=== PATIENT | female | born 1945 | race Caucasian/White ===

== ENCOUNTER 2017-08-23 17:45 | Emergency (ER) | payer MEDICARE, OTHER ==
[2017-08-23] MEDS ORDERED: Labetalol 20 MG/4 ML Syringe IVPUSH ONE (18:42)
--- NOTE | 2017-08-23 18:44 | EDM.PDOC ---
<Pete Reyes - Last Filed: 08/23/17 20:19> ED HPI GENERAL MEDICAL PROBLEM - General Chief Complaint: Cardiovascular Problem Stated Complaint: HIGH BP Time Seen by Provider: 08/23/17 17:58 - History of Present Illness INITIAL COMMENTS - FREE TEXT/NARRATIVE: Says she was doing light housework when the upper chest pain began. No SOB, nausea or diaphoresis. [place] warm. Had taken an Imitrex an hour before the sx's began, lasted 15 minutes. Has used Imitrex many times in the past and never had this reaction. Has not missed any of her BP meds. BP usually runs about upper 140's. Has no hx of CAD. Takes clonidine only once a day at night, usually sees her doctor for BP checks in the morning. - Related Data Allergies Allergy/AdvReac Type Severity Reaction Status Date / Time melatonin Allergy Cannot Verified 08/23/17 17:57 Remember Home Meds: Home Meds Cholecalciferol (Vitamin D3) [Vitamin D3] 1 cap PO DAILY 04/12/16 [History] Citalopram [Citalopram HBr] 20 mg PO DAILY 04/12/16 [History] Fenofibrate 160 mg PO DAILY 04/12/16 [History] Levothyroxine [Synthroid] 100 mcg PO DAILY 04/12/16 [History] Losartan [Cozaar] 150 mg PO DAILY 04/12/16 [History] Metoprolol Succinate [Toprol XL] 50 mg PO DAILY 04/12/16 [History] Omeprazole 20 mg PO BID 04/12/16 [History] Oxybutynin Chloride [Ditropan Xl] 10 mg PO DAILY 04/12/16 [History] SUMAtriptan [Imitrex] 50 mg PO ASDIRECTED PRN 04/12/16 [History] cloNIDine [Catapres] 0.1 mg PO DAILY 04/12/16 [History] metFORMIN [Glucophage] 250 mg PO BID 04/12/16 [History] Course - Vital Signs Text/Narrative:: Remained asymptomatic after tx with labetolol and clonidine here in the ER. Will increase her clonidine to every 12 hrs for around the clock coverage. Last Recorded V/S: Last Vital Signs Temp 37.2 C 08/23/17 17:58 Pulse 64 08/23/17 17:58 Resp 22 H 08/23/17 17:58 BP 155/62 H 08/23/17 19:28 Pulse Ox 99 08/23/17 17:58 - Orders/Labs/Meds Orders: Active Orders 24 hr Category Date Time Status EKG Documentation Completion [RC] ASDIRECTED Care 08/23/17 18:43 Active EKG 12 Lead [EK] Routine Ther 08/23/17 18:42 Ordered Labs: Laboratory Tests 08/23/17 08/23/17 08/23/17 Range/Units 19:10 19:10 19:10 Sodium 134 L (135-145) mmol/L Potassium 3.6 (3.5-5.3) mmol/L Chloride 99 L (100-110) mmol/L Carbon Dioxide 27 (23-29) mmol/L BUN 18 (8-23) mg/dL Creatinine 0.9 (0.6-1.3) mg/dL Est Cr Clr Drug Dosing 48.11 mL/min Estimated GFR (MDRD) > 60 (>60) BUN/Creatinine Ratio 20.0 (9-20) Glucose 154 H (80-116) mg/dL Calcium 9.7 (8.6-10.2) mg/dL Troponin I < 0.01 L (0.02-0.06) NG/ML TSH, Ultra Sensitive 2.15 (0.4-5.5) nlU/mL Meds: Medications Discontinued Medications Generic Name Dose Route Start Last Admin Trade Name Freq PRN Reason Stop Dose Admin Clonidine HCl 0.1 mg 08/23/17 19:22 08/23/17 19:28 Catapres PO 08/23/17 19:23 0.1 mg ONETIME ONE Administration Labetalol HCl 10 mg 08/23/17 18:42 08/23/17 18:51 Normodyne IVPUSH 08/23/17 18:43 10 mg ONETIME ONE Administration Protocol Departure - Departure Time of Disposition: 20:25 Disposition: Home, Self-Care 01 Condition: Fair Clinical Impression: Hypertensive urgency Referrals: Edie Gilmore PA [Primary Care Provider] - Forms: ED Department Discharge - My Orders Last 24 Hours: My Active Orders 08/23/17 18:42 EKG 12 Lead [EK] Routine 08/23/17 18:43 EKG Documentation Completion [RC] ASDIRECTED - Assessment/Plan Last 24 Hours: My Active Orders 08/23/17 18:42 EKG 12 Lead [EK] Routine 08/23/17 18:43 EKG Documentation Completion [RC] ASDIRECTED <Christiano Schuster M - Last Filed: 08/24/17 08:46> ED HPI GENERAL MEDICAL PROBLEM - General Source of Information: Reports: Patient, Family History Limitations: Reports: No Limitations - History of Present Illness INITIAL COMMENTS - FREE TEXT/NARRATIVE: 72 y.o.w.f with H/O HTN came to the ED because of HTN. Pt had CP in am. BP was 210 in am. BP did not go down which prompted the pt to come to the ed. No CP, No H/A no N/V or any other acute medical issues. 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: Musculoskeletal History: Reports: Arthritis, Osteoarthritis Neurological History: Reports: Migraines Psychiatric History: Reports: Anxiety Endocrine/Metabolic History: Reports: Diabetes, Type II, Hypothyroidism - Past Surgical History GI Surgical History: Reports: Appendectomy Female Surgical History: Reports: Hysterectomy, Other (See Below) Other Female Surgeries/Procedures: MENOPAUSAL SYNDROME Musculoskeletal Surgical History: Reports: Arthroscopic Knee Social & Family History - Tobacco Use Smoking Status *Q: Never Smoker Second Hand Smoke Exposure: No - Caffeine Use Caffeine Use: Reports: Soda - Recreational Drug Use Recreational Drug Use: No ED ROS GENERAL - Review of Systems Review Of Systems: See Below Constitutional: Reports: No Symptoms HEENT: Reports: No Symptoms Respiratory: Reports: No Symptoms Cardiovascular: Reports: Chest Pain (in am) Endocrine: Reports: No Symptoms GI/Abdominal: Reports: No Symptoms : Reports: No Symptoms Musculoskeletal: Reports: No Symptoms Skin: Reports: No Symptoms Neurological: Reports: No Symptoms Psychiatric: Reports: No Symptoms Hematologic/Lymphatic: Reports: No Symptoms Immunologic: Reports: No Symptoms ED EXAM, GENERAL - Physical Exam Exam: See Below Exam Limited By: No Limitations General Appearance: Alert, WD/WN, No Apparent Distress Eye Exam: Bilateral Eye: Normal Inspection Ears: Normal External Exam Ear Exam: Bilateral Ear: Auricle Normal Nose: Normal Inspection Throat/Mouth: Normal Inspection, Normal Lips Head: Atraumatic, Normocephalic Neck: Normal Inspection, Supple, Non-Tender Respiratory/Chest: No Respiratory Distress, Lungs Clear, Normal Breath Sounds Cardiovascular: Normal Peripheral Pulses, Regular Rate, Rhythm Peripheral Pulses: 1+: Radial (R) GI/Abdominal: Normal Bowel Sounds, Soft, Non-Tender, No Organomegaly (Female) Exam: Deferred Rectal (Female) Exam: Deferred Back Exam: Normal Inspection, Full Range of Motion Extremities: Normal Inspection, Normal Range of Motion Neurological: Alert, Oriented, CN II-XII Intact, Normal Cognition Psychiatric: Normal Affect, Normal Mood Skin Exam: Warm, Dry, Intact, Normal Color, No Rash Lymphatic: No Adenopathy EKG INTERPRETATION EKG Date: 08/23/17 Time: 18:45 Rhythm: NSR Rate (Beats/Min): 59 Ronda: Normal P-Wave: Present QRS: Normal ST-T: Normal QT: Normal Comparison: NA - No Prior EKG Course - Vital Signs Text/Narrative:: 72 y.o.w.f with H/O HTN came to the ED because of HTN. Pt had CP in am. BP was 210 in am. BP did not go down which prompted the pt to come to the ed. No CP, No H/A no N/V or any other acute medical issues. SBP on arrival was 189 HR was nl PE: WNWD WF NAD with elevated BP Impression: Hypertensive urgency Tx: Labetolol Signed pt out to Dr. Jesus at 7 pm due to shift changes - Orders/Labs/Meds Labs: Laboratory Tests 08/23/17 08/23/17 08/23/17 Range/Units 19:10 19:10 19:10 Sodium 134 L (135-145) mmol/L Potassium 3.6 (3.5-5.3) mmol/L Chloride 99 L (100-110) mmol/L Carbon Dioxide 27 (23-29) mmol/L BUN 18 (8-23) mg/dL Creatinine 0.9 (0.6-1.3) mg/dL Est Cr Clr Drug Dosing 48.11 mL/min Estimated GFR (MDRD) > 60 (>60) BUN/Creatinine Ratio 20.0 (9-20) Glucose 154 H (80-116) mg/dL Calcium 9.7 (8.6-10.2) mg/dL Troponin I < 0.01 L (0.02-0.06) NG/ML TSH, Ultra Sensitive 2.15 (0.4-5.5) nlU/mL
[2017-08-23] MEDS ORDERED: cloNIDine 0.1 MG Tab PO ONE (19:22)
[2017-08-24 19:54] VITALS: BP 164/66
== END 2017-08-23 20:55 | disposition home or self-care (01) ==
LOC: FB.ED 17:45
DX: I16.0 Hypertensive urgency (principal); I10 Essential (primary) hypertension; E11.9 Type 2 diabetes mellitus without complications; E78.00 Pure hypercholesterolemia, unspecified; E03.9 Hypothyroidism, unspecified; Z79.84 Long term (current) use of oral hypoglycemic drugs; Z79.899 Other long term (current) drug therapy; Z88.8 Allergy status to other drugs, medicaments and biological substances
CPT/HCPCS: 36415; 80048; 84443; 84484; 93005; 96374; 99283; A9270; 93010; 99284

== ENCOUNTER 2017-12-22 17:46 | Emergency (ER) | payer MEDICARE, OTHER ==
[2017-12-22] MEDS ORDERED: Sodium Chloride 0.9% 1,000 ML IV ONE (17:59)
[2017-12-22] MEDS ORDERED: Ketorolac 30 MG/ML SDV IVPUSH ONE (18:00)
[2017-12-22] MEDS ORDERED: Albuterol/Ipratropium 3.0-0.5 MG/3 ML Neb Soln NEB ONE (18:02)
--- NOTE | 2017-12-22 20:00 | EDM.PDOC ---
ED HPI GENERAL MEDICAL PROBLEM - General Chief Complaint: Respiratory Problem Stated Complaint: SOB, COUGHING Time Seen by Provider: 12/22/17 17:50 Source of Information: Reports: Patient, Family History Limitations: Reports: No Limitations - History of Present Illness INITIAL COMMENTS - FREE TEXT/NARRATIVE: 72 y.o.w.f came to the ed with nonspecific medical issues. She had a cough, non productive, ant Chest wall pain with a cough, pneumonia last August, gen body ache, poor po intake, nasal congestion. No N/V/D. Possible sick contact. No Dizziness or lightheadedness, no trauma. Pt was ambulating well to the ED. BP 161/76 pulse 81 Temp 38.8 O2 sat 97% Onset Date: 12/19/17 Onset Time: 08:00 Duration: Day(s):, Getting Worse, Intermittent Location: Reports: Chest Quality: Reports: Same as Previous Episode, Other (dry cough, hurts to breath.) Severity: Moderate Improves with: Reports: Rest Worsens with: Reports: Movement Context: Reports: Sick Contact Associated Symptoms: Reports: Chest Pain, Cough, Weakness head and chest Pain Score (Numeric/FACES): 6 - Related Data Allergies Allergy/AdvReac Type Severity Reaction Status Date / Time No Known Allergies Allergy Verified 12/22/17 18:07 Home Meds: Home Meds Cholecalciferol (Vitamin D3) [Vitamin D3] 1 cap PO DAILY 04/12/16 [History] Citalopram [Citalopram HBr] 20 mg PO DAILY 04/12/16 [History] Fenofibrate 160 mg PO DAILY 04/12/16 [History] Levothyroxine [Synthroid] 100 mcg PO DAILY 04/12/16 [History] Losartan [Cozaar] 150 mg PO DAILY 04/12/16 [History] Metoprolol Succinate [Toprol XL] 50 mg PO DAILY 04/12/16 [History] Omeprazole 20 mg PO BID 04/12/16 [History] Oxybutynin Chloride [Ditropan Xl] 10 mg PO DAILY 04/12/16 [History] SUMAtriptan [Imitrex] 50 mg PO ASDIRECTED PRN 04/12/16 [History] cloNIDine [Catapres] 0.1 mg PO DAILY 04/12/16 [History] metFORMIN [Glucophage] 250 mg PO BID 04/12/16 [History] Past Medical History HEENT History: Reports: Sinusitis Cardiovascular History: Reports: High Cholesterol, Hypertension Gastrointestinal History: Reports: GERD 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: Musculoskeletal History: Reports: Arthritis, Osteoarthritis Neurological History: Reports: Migraines Psychiatric History: Reports: Anxiety Endocrine/Metabolic History: Reports: Diabetes, Type II, Hypothyroidism - Past Surgical History GI Surgical History: Reports: Appendectomy Female Surgical History: Reports: Hysterectomy, Other (See Below) Other Female Surgeries/Procedures: MENOPAUSAL SYNDROME Musculoskeletal Surgical History: Reports: Arthroscopic Knee Social & Family History - Family History Family Medical History: Unobtainable - Tobacco Use Smoking Status *Q: Never Smoker Second Hand Smoke Exposure: No - Caffeine Use Caffeine Use: Reports: None - Recreational Drug Use Recreational Drug Use: No ED ROS GENERAL - Review of Systems Review Of Systems: See Below Constitutional: Reports: Weakness, Decreased Appetite HEENT: Reports: No Symptoms Respiratory: Reports: Pleuritic Chest Pain Cardiovascular: Reports: No Symptoms Endocrine: Reports: No Symptoms GI/Abdominal: Reports: No Symptoms : Reports: No Symptoms Musculoskeletal: Reports: No Symptoms Skin: Reports: No Symptoms Neurological: Reports: No Symptoms Psychiatric: Reports: No Symptoms Hematologic/Lymphatic: Reports: No Symptoms Immunologic: Reports: No Symptoms ED EXAM, GENERAL - Physical Exam Exam: See Below Exam Limited By: No Limitations General Appearance: Alert, WD/WN, Mild Distress Eye Exam: Bilateral Eye: Normal Inspection Ears: Normal External Exam Ear Exam: Bilateral Ear: Auricle Normal Nose: Normal Inspection Throat/Mouth: Normal Inspection Head: Atraumatic, Normocephalic Neck: Normal Inspection, Supple, Non-Tender, Full Range of Motion Respiratory/Chest: No Respiratory Distress, Wheezing (minor, disappeared after Tx) Cardiovascular: Normal Peripheral Pulses, Regular Rate, Rhythm, No Edema Peripheral Pulses: 1+: Brachial (R) GI/Abdominal: Normal Bowel Sounds, Tender (tender RUQ of abd. ) (Female) Exam: Deferred Rectal (Female) Exam: Deferred Back Exam: Normal Inspection, Full Range of Motion Extremities: Normal Inspection, Normal Range of Motion, Non-Tender Neurological: Alert, Oriented, CN II-XII Intact, Normal Cognition, Normal Gait Psychiatric: Normal Affect, Normal Mood Skin Exam: Warm, Dry, Intact, Normal Color, No Rash Lymphatic: No Adenopathy Course - Vital Signs Text/Narrative:: 72 y.o.w.f came to the ed with nonspecific medical issues. She had a cough, non productive, ant Chest wall pain with a cough, pneumonia last August, gen body ache, poor po intake, nasal congestion. No N/V/D. Possible sick contact. no headache. No Dizziness or lightheadedness, no trauma. Pt was ambulating well to the ED. BP 161/76 pulse 81 Temp 38.8 O2 sat 97% PE: WNWD W F NAD with an elevated temp, mild wheezes, pleurisy, no sinus tenderness. Labs: CBC WNL elevation of direct bilirubin. Influenza test was neg CXR: NAD Impression: Elevated Direct Bilirubin. Gen. bodyache. Pleurisy, viral syndrome Tx: NS, Toradol, Duoneb Reexam: overall Improved with meds. Plan: D/C with instructions Last Recorded V/S: Last Vital Signs Temp 38.8 C H 12/22/17 17:50 Pulse 75 12/22/17 20:35 Resp 16 12/22/17 20:35 BP 121/59 L 12/22/17 20:35 Pulse Ox 95 12/22/17 20:35 - Orders/Labs/Meds Orders: Active Orders 24 hr Category Date Time Status RT Aerosol Therapy [RC] ASDIRECTED Care 12/22/17 18:03 Active Chest 2V [CR] Stat Exams 12/22/17 17:59 Taken CULTURE BLOOD [BC] Urgent Lab 12/22/17 18:10 Received CULTURE BLOOD [BC] Urgent Lab 12/22/17 18:16 Received Blood Culture x2 Reflex Set [OM.PC] Urgent Oth 12/22/17 18:09 Ordered Labs: Laboratory Tests 12/22/17 12/22/17 12/22/17 Range/Units 18:10 18:10 18:10 WBC 11.0 (4.5-12.0) X10-3/uL RBC 3.73 (3.23-5.20) x10(6)uL Hgb 11.5 (11.5-15.5) g/dL Hct 33.3 (30.0-51.3) % MCV 89.2 (80-96) fL MCH 30.8 (27.7-33.6) pg MCHC 34.6 (32.2-35.4) g/dL RDW 14.1 (11.5-15.5) % Plt Count 177 (125-369) X10(3)uL MPV 8.9 (7.4-10.4) fL Neut % (Auto) 74.8 (46-82) % Lymph % (Auto) 17.3 (13-37) % [place] % (Auto) 6.6 (4-12) % Eos % (Auto) 1 (1.0-5.0) % Baso % (Auto) 1 (0-2) % Neut # (Auto) 8.2 (1.6-8.3) # Lymph # (Auto) 1.9 (0.6-5.0) # [place] # (Auto) 0.7 (0.0-1.3) # Eos # (Auto) 0.1 (0.0-0.8) # Baso # (Auto) 0.1 (0.0-0.2) # Sodium 134 L (135-145) mmol/L Potassium 3.7 (3.5-5.3) mmol/L Chloride 100 (100-110) mmol/L Carbon Dioxide 26 (21-32) mmol/L BUN 15 (7-18) mg/dL Creatinine 1.1 H (0.55-1.02) mg/dL Est Cr Clr Drug Dosing 39.37 mL/min Estimated GFR (MDRD) 49 L (>60) BUN/Creatinine Ratio 13.6 (9-20) Glucose 162 H (80-116) mg/dL Lactic Acid (0.4-2.2) mmol/L Calcium 9.0 (8.6-10.2) mg/dL Total Bilirubin (0.1-1.3) mg/dL Direct Bilirubin (0.10-0.20) mg/dL AST (5-25) IU/L ALT (12-36) U/L Alkaline Phosphatase (56-112) IU/L NT-Pro-B Natriuret Pep 746 H (<=125) pg/mL Total Protein (6.0-8.0) g/dL Albumin (3.2-4.6) g/dL Urine Color (YELLOW) Urine Appearance (CLEAR) Urine pH (5.0-6.5) Ur Specific [place] (1.010-1.025) Urine Protein (NEGATIVE) mg/dL Urine Glucose (UA) (NEGATIVE) mg/dL Urine Ketones (NEGATIVE) mg/dL Urine Occult Blood (NEGATIVE) Urine Nitrite (NEGATIVE) Urine Bilirubin (NEGATIVE) Urine Urobilinogen (NEGATIVE) mg/dL Ur Leukocyte Esterase (NEGATIVE) Urine RBC (0) Urine WBC (0) Ur Squamous Epith Cells (NS,R,O) Urine Bacteria (NS) Hyaline Casts (NS) 12/22/17 12/22/17 12/22/17 Range/Units 18:10 18:10 18:30 WBC (4.5-12.0) X10-3/uL RBC (3.23-5.20) x10(6)uL Hgb (11.5-15.5) g/dL Hct (30.0-51.3) % MCV (80-96) fL MCH (27.7-33.6) pg MCHC (32.2-35.4) g/dL RDW (11.5-15.5) % Plt Count (125-369) X10(3)uL MPV (7.4-10.4) fL Neut % (Auto) (46-82) % Lymph % (Auto) (13-37) % [place] % (Auto) (4-12) % Eos % (Auto) (1.0-5.0) % Baso % (Auto) (0-2) % Neut # (Auto) (1.6-8.3) # Lymph # (Auto) (0.6-5.0) # [place] # (Auto) (0.0-1.3) # Eos # (Auto) (0.0-0.8) # Baso # (Auto) (0.0-0.2) # Sodium (135-145) mmol/L Potassium (3.5-5.3) mmol/L Chloride (100-110) mmol/L Carbon Dioxide (21-32) mmol/L BUN (7-18) mg/dL Creatinine (0.55-1.02) mg/dL Est Cr Clr Drug Dosing mL/min Estimated GFR (MDRD) (>60) BUN/Creatinine Ratio (9-20) Glucose (80-116) mg/dL Lactic Acid 1.3 (0.4-2.2) mmol/L Calcium (8.6-10.2) mg/dL Total Bilirubin 0.8 (0.1-1.3) mg/dL Direct Bilirubin 0.38 H (0.10-0.20) mg/dL AST 46 H (5-25) IU/L ALT 35 (12-36) U/L Alkaline Phosphatase 82 (56-112) IU/L NT-Pro-B Natriuret Pep (<=125) pg/mL Total Protein 8.0 (6.0-8.0) g/dL Albumin 2.4 L (3.2-4.6) g/dL Urine Color Yellow (YELLOW) Urine Appearance Clear (CLEAR) Urine pH 8.0 H (5.0-6.5) Ur Specific [place] 1.010 (1.010-1.025) Urine Protein Negative (NEGATIVE) mg/dL Urine Glucose (UA) Normal (NEGATIVE) mg/dL Urine Ketones Negative (NEGATIVE) mg/dL Urine Occult Blood Negative (NEGATIVE) Urine Nitrite Negative (NEGATIVE) Urine Bilirubin Small H (NEGATIVE) Urine Urobilinogen >=12 H (NEGATIVE) mg/dL Ur Leukocyte Esterase Negative (NEGATIVE) Urine RBC 0-5 (0) Urine WBC 0-5 (0) Ur Squamous Epith Cells Moderate H (NS,R,O) Urine Bacteria Moderate H (NS) Hyaline Casts Few H (NS) Meds: Medications Discontinued Medications Generic Name Dose Route Start Last Admin Trade Name Freq PRN Reason Stop Dose Admin Albuterol/Ipratropium 3 ml 12/22/17 18:02 12/22/17 18:24 Duoneb 3.0-0.5 Mg/3 Ml NEB 12/22/17 18:03 3 ml ONETIME ONE Administration Sodium Chloride 1,000 mls @ 500 mls/hr 12/22/17 17:59 12/22/17 18:59 Normal Saline IV 12/22/17 19:58 500 mls/hr .BOLUS ONE Administration Ketorolac Tromethamine 30 mg 12/22/17 18:00 12/22/17 18:33 Toradol IVPUSH 12/22/17 18:01 30 mg ONETIME ONE Administration Departure - Departure Time of Disposition: 20:24 Disposition: Home, Self-Care 01 Condition: Good Clinical Impression: Weakness generalized, Bilirubin in urine - Discharge Information Referrals: Joanna Abbott DO [Primary Care Provider] - Forms: ED Department Discharge Additional Instructions: Come to [facility] for an ultrasound tomorrow morning at 11:30 AM. Do not eat anything for 6 hours prior to appointment. Please f/u with your PMD, come back if your symptoms get worse acutely - My Orders Last 24 Hours: My Active Orders 12/22/17 17:59 Chest 2V [CR] Stat 12/22/17 18:03 RT Aerosol Therapy [RC] ASDIRECTED 12/22/17 18:09 Blood Culture x2 Reflex Set [OM.PC] Urgent 12/22/17 18:10 CULTURE BLOOD [BC] Urgent 12/22/17 18:16 CULTURE BLOOD [BC] Urgent - Assessment/Plan Last 24 Hours: My Active Orders 12/22/17 17:59 Chest 2V [CR] Stat 12/22/17 18:03 RT Aerosol Therapy [RC] ASDIRECTED 12/22/17 18:09 Blood Culture x2 Reflex Set [OM.PC] Urgent 12/22/17 18:10 CULTURE BLOOD [BC] Urgent 12/22/17 18:16 CULTURE BLOOD [BC] Urgent
[2017-12-22 20:41] VITALS: BP 121/59
--- NOTE | 2017-12-23 11:39 | CR ---
INDICATION: Short of breath. CHEST: PA and lateral views of the chest revealed the heart to be enlarged with LVE. The aorta is tortuous with calcification in the arch. A minimal dextroconcave scoliosis is suggested at the lower thoracic spine. An active infiltrate or effusion was not seen. No definite evidence of CHF is seen. Slightly heavy markings at the left costophrenic angle likely are fibrotic in nature, but make it difficult to entirely exclude minimal patchy bronchopneumonia. Prominent AP diameter is noted. Somewhat linear density at the right lung base medially may represent fibrosis and/or linear atelectasis. IMPRESSION: 1. ASHD with LVE. 2. Mild pulmonary fibrosis, some linear atelectasis - difficult to exclude minimal patchy pneumonia at the left costophrenic angle. 3. Minimal scoliosis. MTDD
== END 2017-12-22 20:35 | disposition home or self-care (01) ==
LOC: FB.ED 17:46
DX: R82.2 Biliuria (principal); R53.1 Weakness; E78.00 Pure hypercholesterolemia, unspecified; I10 Essential (primary) hypertension; E11.9 Type 2 diabetes mellitus without complications; E03.9 Hypothyroidism, unspecified; Z79.899 Other long term (current) drug therapy; Z79.84 Long term (current) use of oral hypoglycemic drugs
CPT/HCPCS: 36415; 71046; 80048; 80076; 81001; 83605; 83880; 85025; 87040; 87804; 87804-59; 94640; 96361; 96374; 99284; 99285; J1885; J7040; J7620

== ENCOUNTER 2021-06-27 06:36 | Day surgery (SDC) | payer MEDICARE, OTHER ==
[2021-06-27] MEDS ORDERED: fentaNYL 100 MCG/2 ML SDV IV ONE (06:37)
[2021-06-27] MEDS ORDERED: Midazolam 1 MG/ML 2 ML SDV IV ONE (06:37)
[2021-06-27] MEDS ORDERED: Sodium Chloride 0.9% 10 ML Syringe FLUSH PRN (06:45)
[2021-06-27] MEDS: Lactated Ringers 1,000 ML IV SCH (07:40)
[2021-06-27] MEDS: acetaZOLAMIDE 500 MG Cap.ER PO ONE (09:37)
[2021-06-27 09:56] VITALS: BP 160/94; PULSE 59
--- NOTE | 2021-06-27 11:48 | OR ---
DATE OF OPERATION: 06/27/2021 SURGEON: Marlene Barragan MD PREOPERATIVE DIAGNOSIS: Visually significant cataract, right eye. POSTOPERATIVE DIAGNOSIS: Visually significant cataract, right eye. PROCEDURES PERFORMED: Phacoemulsification with intraocular lens placement, right eye. ASSISTANTS: None. ANESTHESIA: Local with sedation. COMPLICATIONS: None. BLOOD LOSS: None. IMPLANTS: Pre-loaded DCB00 22.0 diopter lens implanted. CDE: 5.10. DESCRIPTION OF PROCEDURE: After risks and benefits were reviewed with the patient, consent was obtained in the preoperative area, and the operative eye was marked with a surgical pen. In the preoperative area, a pledget was used to dilate the pupil consisting of a mixture of phenylephrine 10%, cyclopentolate 2%, moxifloxacin 0.5%, and bupivacaine 0.75%. The patient was taken to the operating room, where a time-out was performed, and the patient was placed under monitored anesthesia care. Topical tetracaine was used for anesthesia. The operative eye was prepped and draped for ophthalmic surgery, and the microscope was brought into position and focused. A paracentesis incision was made, followed by injection of preservative-free 1% lidocaine into the anterior chamber, followed by injection of Viscoat into the anterior chamber. A microkeratome blade was used to make a corneal limbal incision temporally. A cystotome was used to make the beginning of the capsulorrhexis, which was carried around 360 degrees in a curvilinear fashion using Utrata forceps. A Cha cannula with BSS was used to hydrodissect and hydrodelineate the nucleus. The nucleus was removed in a divide and conquer manner using phacoemulsification. Irrigation and aspiration were used to remove the remaining cortical material. Provisc was used to inflate the capsular bag, and a pre-loaded DCB00 22.0 diopter lens, serial number [id number] was injected into the capsular bag. A Sinskey hook was used to position and center the lens. Next, irrigation and aspiration was used to remove any remaining viscoelastic and cortical material from the anterior chamber. BSS on a cannula was used to inflate the anterior chamber and hydrate the wound. The wound was checked and found to be watertight. 1 mg of Moxifloxacin was injected into the anterior chamber. Drapes were removed and the eye was cleaned. A drop of brimonidine 0.2% and a drop of TobraDex was placed. The eye was shielded, and the patient was taken to the recovery room in stable condition. /[id number]
== END 2021-06-27 09:45 | disposition home or self-care (01) ==
LOC: FB.SDS 06:36
PROVIDERS: ATTEND Ophthalmology
DX: E11.36 Type 2 diabetes mellitus with diabetic cataract (principal); H25.13 Age-related nuclear cataract, bilateral; H35.363 Drusen (degenerative) of macula, bilateral; H02.831 Dermatochalasis of right upper eyelid; H02.834 Dermatochalasis of left upper eyelid; H16.223 Keratoconjunctivitis sicca, not specified as Sjogren's, bilateral; H43.811 Vitreous degeneration, right eye; I10 Essential (primary) hypertension; E78.00 Pure hypercholesterolemia, unspecified; F32.9 Major depressive disorder, single episode, unspecified; G43.909 Migraine, unspecified, not intractable, without status migrainosus; Z90.49 Acquired absence of other specified parts of digestive tract; Z79.899 Other long term (current) drug therapy; Z79.84 Long term (current) use of oral hypoglycemic drugs; Z79.890 Hormone replacement therapy; Z98.890 Other specified postprocedural states
CPT/HCPCS: 00142-QZ; 82947; A9270-GY; J2250; J3010; J7120; V2632

== ENCOUNTER 2021-07-11 06:43 | Day surgery (SDC) | payer MEDICARE, OTHER ==
[2021-07-11] MEDS ORDERED: fentaNYL 100 MCG/2 ML SDV IV ONE (06:44)
[2021-07-11] MEDS ORDERED: Midazolam 1 MG/ML 2 ML SDV IV ONE (06:44)
[2021-07-11] MEDS ORDERED: Lactated Ringers 1,000 ML IV SCH (06:45)
[2021-07-11] MEDS ORDERED: Sodium Chloride 0.9% 10 ML Syringe FLUSH PRN (06:45)
[2021-07-11] MEDS ORDERED: acetaZOLAMIDE 500 MG Cap.ER PO ONE (09:00)
[2021-07-11 09:04] VITALS: BP 149/58; PULSE 60
--- NOTE | 2021-07-14 13:58 | OR ---
DATE OF OPERATION: 07/11/2021 SURGEON: Marlene Barragan MD PREOPERATIVE DIAGNOSIS: Visually significant cataract, left eye. POSTOPERATIVE DIAGNOSIS: Visually significant cataract, left eye. PROCEDURES PERFORMED: Phacoemulsification with intraocular lens placement, left eye. ASSISTANTS: None. ANESTHESIA: Local with sedation. COMPLICATIONS: None. BLOOD LOSS: None. IMPLANTS: A pre-loaded DCB00 22.0 diopter lens implanted. CDE: 3.71. DESCRIPTION OF PROCEDURE: After risks and benefits were reviewed with the patient, consent was obtained in the preoperative area, and the operative eye was marked with a surgical pen. In the preoperative area, a pledget was used to dilate the pupil consisting of a mixture of phenylephrine 10%, cyclopentolate 2%, moxifloxacin 0.5%, and bupivacaine 0.75%. The patient was taken to the operating room, where a time-out was performed, and the patient was placed under monitored anesthesia care. Topical tetracaine was used for anesthesia. The operative eye was prepped and draped for ophthalmic surgery, and the microscope was brought into position and focused. A paracentesis incision was made, followed by injection of preservative-free 1% lidocaine into the anterior chamber, followed by injection of Viscoat into the anterior chamber. A microkeratome blade was used to make a corneal limbal incision temporally. A cystotome was used to make the beginning of the capsulorrhexis, which was carried around 360 degrees in a curvilinear fashion using Utrata forceps. A Cha cannula with BSS was used to hydrodissect and hydrodelineate the nucleus. The nucleus was removed in a divide and conquer manner using phacoemulsification. Irrigation and aspiration were used to remove the remaining cortical material. Provisc was used to inflate the capsular bag, and a pre-loaded DCB00 22.0 diopter lens, serial number [id number] was injected into the capsular bag. A Sinskey hook was used to position and center the lens. Next, irrigation and aspiration was used to remove any remaining viscoelastic and cortical material from the anterior chamber. BSS on a cannula was used to inflate the anterior chamber and hydrate the wound. The wound was checked and found to be watertight. 1 mg of Moxifloxacin was injected into the anterior chamber. Drapes were removed and the eye was cleaned. A drop of brimonidine 0.2% and a drop of TobraDex was placed. The eye was shielded, and the patient was taken to the recovery room in stable condition. /[id number]/OG
== END 2021-07-11 09:48 | disposition home or self-care (01) ==
LOC: FB.SDS 06:43
PROVIDERS: ATTEND Ophthalmology
DX: E11.36 Type 2 diabetes mellitus with diabetic cataract (principal); H25.13 Age-related nuclear cataract, bilateral; H35.363 Drusen (degenerative) of macula, bilateral; H02.831 Dermatochalasis of right upper eyelid; H02.834 Dermatochalasis of left upper eyelid; H16.223 Keratoconjunctivitis sicca, not specified as Sjogren's, bilateral; H43.811 Vitreous degeneration, right eye; I10 Essential (primary) hypertension; Z79.899 Other long term (current) drug therapy; E78.00 Pure hypercholesterolemia, unspecified; E03.9 Hypothyroidism, unspecified; F33.0 Major depressive disorder, recurrent, mild; K21.9 Gastro-esophageal reflux disease without esophagitis; Z86.73 Personal history of transient ischemic attack (TIA), and cerebral infarction without residual deficits; Z91.048 Other nonmedicinal substance allergy status; Z79.890 Hormone replacement therapy; Z79.82 Long term (current) use of aspirin; Z79.84 Long term (current) use of oral hypoglycemic drugs; Z90.49 Acquired absence of other specified parts of digestive tract; Z98.890 Other specified postprocedural states
CPT/HCPCS: 00142; 66984; 82947; A9270; J2250; J3010; J7120; V2632

== ENCOUNTER 2022-02-01 07:40 | Day surgery (SDC) | payer MEDICARE, OTHER ==
[2022-02-01] MEDS ORDERED: Propofol 200 MG/20 ML SDV IV ONE (07:41)
[2022-02-01] MEDS ORDERED: Sodium Chloride 0.9% 10 ML Syringe FLUSH PRN (07:45)
[2022-02-01] MEDS ORDERED: Lactated Ringers 1,000 ML IV SCH (07:45)
[2022-02-01 11:27] VITALS: BP 152/66; PULSE 61
== END 2022-02-01 11:58 | disposition home or self-care (01) ==
LOC: FB.SDS 07:40
PROVIDERS: ATTEND Surgery
DX: Z12.11 Encounter for screening for malignant neoplasm of colon (principal); D12.0 Benign neoplasm of cecum; D12.2 Benign neoplasm of ascending colon; K57.30 Diverticulosis of large intestine without perforation or abscess without bleeding; K42.0 Umbilical hernia with obstruction, without gangrene; F41.9 Anxiety disorder, unspecified; F32.A Depression, unspecified; E11.9 Type 2 diabetes mellitus without complications; I10 Essential (primary) hypertension; K21.9 Gastro-esophageal reflux disease without esophagitis; E03.9 Hypothyroidism, unspecified; E66.9 Obesity, unspecified; Z91.018 Allergy to other foods; Z79.84 Long term (current) use of oral hypoglycemic drugs; Z79.899 Other long term (current) drug therapy; Z79.890 Hormone replacement therapy; Z90.49 Acquired absence of other specified parts of digestive tract; Z98.890 Other specified postprocedural states; Z86.010 Personal history of colon polyps; Z86.73 Personal history of transient ischemic attack (TIA), and cerebral infarction without residual deficits
CPT/HCPCS: 00812-QZ; 88305; J2704; J7120

== ENCOUNTER 2022-03-22 07:31 | Day surgery (SDC) | payer MEDICARE, OTHER ==
[~2022-03-22 07:31] MED LIST: Sodium Chloride 0.9% 10 ML Syringe FLUSH PRN
[2022-03-22] MEDS ORDERED: fentaNYL 100 MCG/2 ML SDV IV ONE (07:32)
[2022-03-22] MEDS ORDERED: Ketorolac 30 MG/ML SDV IVPUSH ONE (07:32)
[2022-03-22] MEDS ORDERED: Propofol 200 MG/20 ML SDV IV ONE (07:32)
[2022-03-22] MEDS ORDERED: Glycopyrrolate 0.2 MG/ML 5 ML MDV IV ONE (07:32)
[2022-03-22] MEDS ORDERED: Ondansetron 4 MG/2 ML SDV IVPUSH ONE (07:32)
[2022-03-22] MEDS ORDERED: Midazolam 1 MG/ML 2 ML SDV IV ONE (07:32)
[2022-03-22] MEDS ORDERED: ceFAZolin 1 GM in Sodium Chloride 0.9% 50 ML IV ONE (08:30)
[2022-03-22] MEDS: Lactated Ringers 1,000 ML IV SCH (08:48)
[2022-03-22] MEDS: ceFAZolin 1 GM Vial IVPUSH ONE (09:18)
[2022-03-22] MEDS: Bupivacaine 0.5% 30 ML SDV INJECT ONE (09:48)
[2022-03-22] MEDS: Lidocaine 1% with EPINEPHrine 1:100,000 20 ML MDV INJECT ONE (09:48)
[2022-03-22 12:12] VITALS: BP 161/74; PULSE 64
== END 2022-03-22 11:35 | disposition home or self-care (01) ==
LOC: FB.SDS 07:31
PROVIDERS: ATTEND Surgery
DX: K42.9 Umbilical hernia without obstruction or gangrene (principal); F41.9 Anxiety disorder, unspecified; E11.9 Type 2 diabetes mellitus without complications; F32.A Depression, unspecified; E78.00 Pure hypercholesterolemia, unspecified; K21.9 Gastro-esophageal reflux disease without esophagitis; E78.5 Hyperlipidemia, unspecified; I10 Essential (primary) hypertension; G43.909 Migraine, unspecified, not intractable, without status migrainosus; E66.9 Obesity, unspecified; E03.9 Hypothyroidism, unspecified; Z01.812 Encounter for preprocedural laboratory examination; Z79.899 Other long term (current) drug therapy; Z86.73 Personal history of transient ischemic attack (TIA), and cerebral infarction without residual deficits; Z90.49 Acquired absence of other specified parts of digestive tract; Z98.890 Other specified postprocedural states; Z20.822 Contact with and (suspected) exposure to COVID-19
CPT/HCPCS: 00752-QZ; 82947; J0690; J1885; J2250; J2405; J2704; J3010; J3490; J7120; U0002

== ENCOUNTER 2023-07-13 17:54 | Emergency (ER) | payer MEDICARE, OTHER ==
[2023-07-13] MEDS ORDERED: Sodium Chloride 0.9% 10 ML Syringe FLUSH PRN (19:17)
[2023-07-13] MEDS ORDERED: Sodium Chloride 0.9% 500 ML IV ONE ×2 (19:17→21:11)
[2023-07-13 19:40] LABS: BASOPHILS ABSOLUTE AUTO 0.1 x10-3/uL (0.0-0.1); BASOPHILS PERCENT AUTO 1.1 % (0.2-1.5); EOSINOPHILS ABSOLUTE AUTO 0.2 x10-3/uL (0.0-0.8); EOSINOPHILS PERCENT AUTO 2.2 % (0.6-8.1); HEMATOCRIT 32.9 % (34.2-48.2); HEMOGLOBIN 11.3 g/dL (11.4-15.5); LYMPHOCYTES ABSOLUTE AUTO 2.6 x10-3/uL (1.0-4.4); MEAN CORPUSCULAR HEMOGLOBIN 30.9 pg (23.9-33.9); MEAN CORPUSCULAR HGB CONC 34.4 g/dL (31.9-34.8); MEAN CORPUSCULAR VOLUME 89.9 fL (76.7-100.5); MEAN PLATELET VOLUME 8.1 fL (7.1-12.4); MONOCYTES ABSOLUTE AUTO 0.6 x10-3/uL (0.3-1.0); MONOCYTES PERCENT AUTO 7.8 % (4.4-15.7); NEUTROPHILS ABSOLUTE AUTO 4.1 x10-3/uL (1.5-6.3); NEUTROPHILS PERCENT AUTO 53.9 % (30.8-76.2); PLATELET COUNT,PLT 273 x10(3)uL (151-488); RED BLOOD CELL COUNT 3.66 x10(6)uL (3.60-5.20); RED CELL DISTRIBUTION WIDTH 12.8 % (12.3-16.5); WHITE BLOOD CELL COUNT,WBC 7.6 x10-3/uL (3.0-10.3)
[2023-07-13 19:44] LABS: BLOOD UREA NITROGEN,BUN 23 mg/dL (7-18); BUN/CREATININE RATIO 19.2 (9-20); CARBON DIOXIDE,CO2 27 mmol/L (21-32); CHLORIDE,CL 98 mmol/L (100-110); CREATININE 1.2 mg/dL (0.55-1.02); ESTIMATED GFR 47 mL/min (>60); GLUCOSE RANDOM 119 mg/dL (80-116); POTASSIUM,K 3.7 mmol/L (3.5-5.3); SODIUM,NA 132 mmol/L (135-145)
[2023-07-13 19:55] LABS: A/G RATIO 0.6; ALANINE AMINOTRANSFERASE,ALT 18 U/L (12-36); ALKALINE PHOSPHATASE 52 IU/L (56-112); ASPARTATE AMNIOTRANSFERASE,AST 26 IU/L (5-25); BILIRUBIN TOTAL 0.4 mg/dL (0.1-1.3); PROTEIN TOTAL,TP 8.3 g/dL (6.0-8.0)
[2023-07-14 02:11] VITALS: BP 145/80; PULSE 72
== END 2023-07-13 20:38 | disposition home or self-care (01) ==
LOC: FB.ED 17:54
DX: R19.7 Diarrhea, unspecified (principal); E03.9 Hypothyroidism, unspecified; E11.9 Type 2 diabetes mellitus without complications; E66.9 Obesity, unspecified; E78.00 Pure hypercholesterolemia, unspecified; I10 Essential (primary) hypertension; K21.9 Gastro-esophageal reflux disease without esophagitis; M19.90 Unspecified osteoarthritis, unspecified site; Z86.73 Personal history of transient ischemic attack (TIA), and cerebral infarction without residual deficits; Z79.82 Long term (current) use of aspirin; Z79.84 Long term (current) use of oral hypoglycemic drugs; Z79.899 Other long term (current) drug therapy; Z91.018 Allergy to other foods; Z68.24 Body mass index [BMI] 24.0-24.9, adult
CPT/HCPCS: 36415; 71045; 80053; 85025; 87230; 96360; 99284; J7040

== ENCOUNTER 2023-10-26 19:13 | Emergency (ER) | payer MEDICARE, OTHER ==
[2023-10-26 20:04] VITALS: BP 169/72; PULSE 74
== END 2023-10-26 20:07 | disposition home or self-care (01) ==
LOC: FB.ED 19:13
DX: S01.01XA Laceration without foreign body of scalp, initial encounter (principal); I10 Essential (primary) hypertension; E78.00 Pure hypercholesterolemia, unspecified; E03.9 Hypothyroidism, unspecified; E11.9 Type 2 diabetes mellitus without complications; K21.9 Gastro-esophageal reflux disease without esophagitis; M19.90 Unspecified osteoarthritis, unspecified site; Z79.82 Long term (current) use of aspirin; Z79.84 Long term (current) use of oral hypoglycemic drugs; Z79.899 Other long term (current) drug therapy; Z91.018 Allergy to other foods; W18.09XA Striking against other object with subsequent fall, initial encounter
CPT/HCPCS: 12002; 99282; 99283

== ENCOUNTER 2024-06-28 21:25 | Emergency (ER) | payer MEDICARE, OTHER ==
[2024-06-28] MEDS ORDERED: Sodium Chloride 0.9% 10 ML Syringe FLUSH PRN (21:38)
[2024-06-28 21:39] VITALS: BP 106/62; PULSE 73
[2024-06-28] MEDS: Sodium Chloride 0.9% 1,000 ML IV ONE ×2 (21:46→23:11)
[2024-06-28] MEDS: Ondansetron 4 MG/2 ML SDV IVPUSH ONE (21:46)
[2024-06-28 21:53] LABS: HEMOGLOBIN 11.6 g/dL (11.4-15.5); MEAN CORPUSCULAR HEMOGLOBIN 29.5 pg (23.9-33.9); MEAN CORPUSCULAR HGB CONC 33.1 g/dL (31.9-34.8); MEAN CORPUSCULAR VOLUME 89.3 fL (76.7-100.5); PLATELET COUNT,PLT 221 x10(3)uL (151-488); RED BLOOD CELL COUNT 3.92 x10(6)uL (3.60-5.20); RED CELL DISTRIBUTION WIDTH 14.4 % (12.3-16.5)
[2024-06-28 22:01] LABS: A/G RATIO 0.6; ALANINE AMINOTRANSFERASE,ALT 22 U/L (12-36); ALBUMIN 2.9 g/dL (3.2-4.6); ALKALINE PHOSPHATASE 57 IU/L (56-112); ASPARTATE AMNIOTRANSFERASE,AST 53 IU/L (5-25); BILIRUBIN TOTAL 0.8 mg/dL (0.1-1.3); BLOOD UREA NITROGEN,BUN 22 mg/dL (7-18); CALCIUM 9.4 mg/dL (8.6-10.2); CARBON DIOXIDE,CO2 18 mmol/L (21-32); CHLORIDE,CL 100 mmol/L (100-110); EST CRCL DRUG DOSING (CG) 19.79 mL/min; ESTIMATED GFR 25 mL/min (>60); GLUCOSE RANDOM 81 mg/dL (80-116); POTASSIUM,K 4.5 mmol/L (3.5-5.3); PROTEIN TOTAL,TP 7.9 g/dL (6.0-8.0); SODIUM,NA 140 mmol/L (135-145)
[2024-06-28 22:05] LABS: HEMOGLOBIN A1C 7.1 % (<5.7)
[2024-06-28 22:06] LABS: LACTIC ACID 8.9 mmol/L (0.4-2.0)
[2024-06-28 22:23] LABS: BAND PERCENT MAN 8 % (0-6); LYMPHOCYTES PERCENT MAN 7 % (13-37); METAMYELOCYTE PERCENT MAN 3 % (0-0); SEG NEUTROPHILS PERCENT MAN 82 % (46-82)
[2024-06-28 22:31] LABS: BILIRUBIN,URINE MODERATE (NEGATIVE); GLUCOSE,URINE NORMAL (NORMAL); KETONES,URINE 15 mg/dL (NEGATIVE); LEUKOCYTE ESTERASE,URINE MODERATE (NEGATIVE); NITRITE,URINE NEGATIVE (NEGATIVE); OCCULT BLOOD,URINE NEGATIVE (NEGATIVE); PROTEIN,URINE 30 mg/dL (NEGATIVE); UROBILINOGEN,URINE 1 mg/dL (NEGATIVE)
[2024-06-28 22:40] LABS: APPEARANCE,URINE CLOUDY (CLEAR); COLOR,URINE YELLOW (YELLOW); RBC,URINE 0-5 (0-5); SQUAMOUS EPITHELIAL CELLS,UR MODERATE (NS,R,O)
[2024-06-28 22:41] LABS: BACTERIA,URINE MANY (NS)
[2024-06-29 00:40] LABS: A/G RATIO 0.6; ALANINE AMINOTRANSFERASE,ALT 16 U/L (12-36); ALBUMIN 2.3 g/dL (3.2-4.6); ALKALINE PHOSPHATASE 38 IU/L (56-112); ASPARTATE AMNIOTRANSFERASE,AST 42 IU/L (5-25); BILIRUBIN TOTAL 0.7 mg/dL (0.1-1.3); BLOOD UREA NITROGEN,BUN 21 mg/dL (7-18); CALCIUM 7.6 mg/dL (8.6-10.2); CARBON DIOXIDE,CO2 19 mmol/L (21-32); CHLORIDE,CL 102 mmol/L (100-110); EST CRCL DRUG DOSING (CG) 18.85 mL/min; ESTIMATED GFR 24 mL/min (>60); GLUCOSE RANDOM 190 mg/dL (80-116); POTASSIUM,K 3.9 mmol/L (3.5-5.3); PROTEIN TOTAL,TP 6.5 g/dL (6.0-8.0); SODIUM,NA 140 mmol/L (135-145)
[2024-06-29 00:44] LABS: CREATININE 2.1 mg/dL (0.55-1.02)
[2024-06-29] MEDS ORDERED: Piperacillin/Tazobactam 3.375 GM in Sodium Chloride 0.9% 50 ML IV ONE (01:30)
== END 2024-06-29 01:45 ==
LOC: FB.ED 21:25
DX: K80.01 Calculus of gallbladder with acute cholecystitis with obstruction (principal); N30.01 Acute cystitis with hematuria; E86.0 Dehydration; E11.9 Type 2 diabetes mellitus without complications; N83.202 Unspecified ovarian cyst, left side; G31.83 Neurocognitive disorder with Lewy bodies; F02.80 Dementia in other diseases classified elsewhere, unspecified severity, without behavioral disturbance, psychotic disturbance, mood disturbance, and anxiety; K08.89 Other specified disorders of teeth and supporting structures; I10 Essential (primary) hypertension; E78.00 Pure hypercholesterolemia, unspecified; K21.9 Gastro-esophageal reflux disease without esophagitis; E66.9 Obesity, unspecified; E03.9 Hypothyroidism, unspecified; Z90.49 Acquired absence of other specified parts of digestive tract; Z90.710 Acquired absence of both cervix and uterus; Z79.899 Other long term (current) drug therapy; Z79.82 Long term (current) use of aspirin; Z79.84 Long term (current) use of oral hypoglycemic drugs; Z91.018 Allergy to other foods; Z68.26 Body mass index [BMI] 26.0-26.9, adult
CPT/HCPCS: 36415; 74176; 80053; 81001; 83036; 83605; 83690; 85025; 86140; 87040; 87077; 87086; 87088; 87186; 96361; 96374; 99285; 99285-25; J2405; J7030

== ENCOUNTER 2025-02-08 07:52 | Day surgery (SDC) | payer MEDICARE, OTHER ==
[2025-02-08] MEDS ORDERED: Lidocaine 2% 100 MG/5 ML Syringe IVPUSH ONE (07:53)
[2025-02-08] MEDS ORDERED: Propofol 200 MG/20 ML SDV IV ONE (07:53)
[2025-02-08] MEDS ORDERED: Glycopyrrolate 0.2 MG/ML 5 ML MDV IV ONE (07:53)
[2025-02-08] MEDS: Simethicone Drops 40 MG/0.6 ML 30 ML Bottle ONE (08:11)
[2025-02-08] MEDS: Lactated Ringers 1,000 ML IV SCH (08:26)
[2025-02-08 10:18] VITALS: BP 157/89; PULSE 74
== END 2025-02-08 10:13 | disposition home or self-care (01) ==
LOC: FB.SDS 07:52
PROVIDERS: ATTEND Surgery
DX: Z12.11 Encounter for screening for malignant neoplasm of colon (principal); D12.0 Benign neoplasm of cecum; D12.6 Benign neoplasm of colon, unspecified; K57.30 Diverticulosis of large intestine without perforation or abscess without bleeding; Z86.0101 Personal history of adenomatous and serrated colon polyps; I10 Essential (primary) hypertension; E11.9 Type 2 diabetes mellitus without complications; E78.00 Pure hypercholesterolemia, unspecified; K21.9 Gastro-esophageal reflux disease without esophagitis; Z79.899 Other long term (current) drug therapy; Z88.8 Allergy status to other drugs, medicaments and biological substances
CPT/HCPCS: 45385; 82947; 88305; A9270; J1596; J2704; J7120; 00811; 99100

== ENCOUNTER 2025-06-10 15:18 | Emergency (ER) | payer MEDICARE, OTHER ==
[2025-06-10 16:39] LABS: BASOPHILS ABSOLUTE AUTO 0.1 x10-3/uL (0.0-0.1); BASOPHILS PERCENT AUTO 1.0 % (0.2-1.5); EOSINOPHILS ABSOLUTE AUTO 0.2 x10-3/uL (0.0-0.8); EOSINOPHILS PERCENT AUTO 2.8 % (0.6-8.1); LYMPHOCYTES ABSOLUTE AUTO 1.6 x10-3/uL (1.0-4.4); LYMPHOCYTES PERCENT AUTO 20.3 % (18.4-52.1); MEAN PLATELET VOLUME 8.5 fL (7.1-12.4); MONOCYTES ABSOLUTE AUTO 0.7 x10-3/uL (0.3-1.0); MONOCYTES PERCENT AUTO 8.5 % (4.4-15.7); NEUTROPHILS ABSOLUTE AUTO 5.2 x10-3/uL (1.5-6.3); NEUTROPHILS PERCENT AUTO 67.4 % (30.8-76.2); PLATELET COUNT,PLT 223 x10(3)uL (151-488); RED BLOOD CELL COUNT 3.81 x10(6)uL (3.60-5.20); RED CELL DISTRIBUTION WIDTH 13.7 % (12.3-16.5); WHITE BLOOD CELL COUNT,WBC 7.8 x10-3/uL (3.0-10.3)
[2025-06-10 16:47] LABS: GLUCOSE,URINE >1000 mg/dL (NORMAL); OCCULT BLOOD,URINE NEGATIVE (NEGATIVE)
[2025-06-10 16:48] LABS: A/G RATIO 0.7; ALANINE AMINOTRANSFERASE,ALT 13 U/L (12-36); ASPARTATE AMNIOTRANSFERASE,AST 23 IU/L (5-25); BILIRUBIN TOTAL 0.3 mg/dL (0.1-1.3); BLOOD UREA NITROGEN,BUN 38 mg/dL (7-18); CARBON DIOXIDE,CO2 29 mmol/L (21-32); CHLORIDE,CL 99 mmol/L (100-110); CREATININE 1.6 mg/dL (0.55-1.02); ESTIMATED GFR 33 mL/min (>60); POTASSIUM,K 5.5 mmol/L (3.5-5.3); PROTEIN TOTAL,TP 7.9 g/dL (6.0-8.0); SODIUM,NA 135 mmol/L (135-145)
[2025-06-10 16:52] LABS: GLUCOSE RANDOM 436 mg/dL (80-116)
[2025-06-10 17:06] LABS: APPEARANCE,URINE CLEAR (CLEAR); SQUAMOUS EPITHELIAL CELLS,UR OCCASIONAL (NS,R,O)
[2025-06-10 18:50] VITALS: PULSE 70
[2025-06-10 18:51] VITALS: BP 120/52
== END 2025-06-10 18:45 | disposition home or self-care (01) ==
LOC: FB.ED 15:18
DX: E11.65 Type 2 diabetes mellitus with hyperglycemia (principal); E78.00 Pure hypercholesterolemia, unspecified; I10 Essential (primary) hypertension; K21.9 Gastro-esophageal reflux disease without esophagitis; Z88.8 Allergy status to other drugs, medicaments and biological substances; Z79.82 Long term (current) use of aspirin; Z79.899 Other long term (current) drug therapy; Z79.84 Long term (current) use of oral hypoglycemic drugs
CPT/HCPCS: 36415; 80053; 81001; 83036; 85025; 86140; 99284